=== PATIENT | female | born 1950 | race Caucasian/White ===

== ENCOUNTER → 2016-06-18 | Outpatient (CLI) | payer MEDICAID ==
--- NOTE | 2016-06-18 10:39 | MA ---
Bilateral Digital Screening Mammography Clinical History: 65-year-old female presenting for routine annual mammographic screening. There is no known family history of breast cancer. Technique: Digital CC and MLO views of each breast are compared with previous studies dated March 162014 and February 09, 2008. This examination was processed by the iCAD computer-aided detection syst em. Breast Density: Type C (heterogeneously dense). CAD Evaluation: Negative. Findings: There is a moderately dense heterogeneous residual fibroglandular pattern, which limits qian mographic detection. On the craniocaudal view of the left breast seen in the subareolar aspect, there are a series of convex-edged opacities which appear more conspicuous than on previous studies. Spot compression view, true mediolateral view, and potential sonography are suggested. There are no suspic ious clustered microcalcifications. Impression: Additional imaging evaluation of the anterior left breast. BI-RADS Category: 0, incomplete. Recommendation: Supplementary spot compression views and possible sonography. The latter will be lef t to the discretion of the interpreting radiologist.
== END ==
LOC: CIMAGING 09:39
DX: Z12.31 Encounter for screening mammogram for malignant neoplasm of breast (principal)
CPT/HCPCS: G0202

== ENCOUNTER → 2016-07-02 | Outpatient (CLI) | payer MEDICAID ==
--- NOTE | 2016-07-02 19:17 | MA ---
Left Diagnostic Digital Mammogram with iCAD Clinical Indications: Asymmetric density on recent screening mammogram. Technique: Digital spot compression CC, spot mediolateral oblique and true lateral views. This exami nation was processed by the iCAD computer-aided detection system. Comparison: Recent mammogram. 2016, 2014, 2008. Breast Density: 3, 50-75%. Findings: Previous asymmetric density identified is no longer detected on the additional views or antonella e lateral views. This probably represents normal overlapping breast parenchyma. However there is dens e parenchymal pattern in the retroareolar region for which additional imaging with ultrasound will be performed. Impression: ACR BI-RADS 0: Needs further imaging. Recommendation: Ultrasound of the left breast which will be subsequently performed. Please see ultras ound report and recommendations. [facility] will send a result letter to the patient. Findings and recommendations have been discussed with the patient who agrees with the plan.
--- NOTE | 2016-07-02 19:20 | US ---
Ultrasound Left Breast History: Nodular parenchymal pattern involving the retroareolar region left breast on mammogram. COMPARISON: Multiple Prior mammograms most recent from today. Technique: Ultrasound imaging of the retroareolar region of the left breast. Findings: Several normal appearing retroareolar ducts in the left breast retroareolar region without evidence of suspicious solid masses. This is compatible with the patient's mammogram. No suspicious f indings on mammography or ultrasound. Impression: 1. BI-RADS 2: Benign findings left breast. 2. Benign findings in the left breast on mammography and ultrasound with normal appearing retroareola r ducts. No suspicious findings. 3. Recommend Annual screening mammograms with next mammogram in June 2017. Findings and recommendations have been discussed with the patient who agrees with the plan.
== END ==
LOC: CIMAGING 13:11
DX: N63 Unspecified lump in breast (principal)
CPT/HCPCS: 76641-PO; G0206